=== PATIENT | female | born 1965 | race Caucasian/White ===

== ENCOUNTER 2019-07-15 06:10 | Day surgery (SDC) | payer OTHER ==
[2019-07-15] MEDS ORDERED: ONDANSETRON 4 MG/2 ML VIAL IVP STA (06:26)
[2019-07-15] MEDS ORDERED: MORPHINE 2 MG/ML CARPUJECT IVP STA (06:26)
--- NOTE | 2019-07-15 06:43 | ED Physician Documentation ---
PD HPI ABD PAIN - Stated complaint Stated Complaint: ABD PX - Chief complaint Chief Complaint: Abd Pain - History obtained from History obtained from: Patient - History of Present Illness Timing - onset: How many hours ago (5) Timing - duration: Hours (5) Timing - details: Abrupt onset Severity Comments: severe Quality: Sharp Location: RUQ Radiation: Other (across mid abdomen) Improved by: Other (nothing) Worsened by: Palpation Associated symptoms: Nausea. No: Fever, Vomiting, Hematemesis, Diarrhea, Constipation, Melena, Hematochezia, Dysuria, Hematuria, Chest pain, Dizzy Similar symptoms before: Diagnosis (has hx of similar symptoms and was diagnosed with gallstones in 2012 but saw a surgeon who told her he felt she could wait for surgery) Recently seen: Not recently seen - Treatment prior to arrival Treatment prior to arrival: none Review of Systems Ten Systems: 10 systems reviewed and negative Constitutional: denies: Fever Throat: reports: Reviewed and negative Cardiac: denies: Chest pain / pressure Respiratory: denies: Dyspnea, Cough GI: reports: Abdominal Pain, Nausea. denies: Abdominal Swelling, Vomiting, Constipation, Diarrhea, Hematemesis, Bloody / black stool : reports: Reviewed and negative Skin: reports: Reviewed and negative Musculoskeletal: denies: Back pain Neurologic: reports: Reviewed and negative Immunocompromised: reports: Reviewed and negative PD PAST MEDICAL HISTORY - Past Medical History Past Medical History: Yes GI: Other (gallstones ) - Allergies Allergies/Adverse Reactions: Allergies Allergy/AdvReac Type Severity Reaction Status Date / Time azithromycin Allergy Hives Verified 07/15/19 06:19 PD ED PE NORMAL - Vitals Vital signs reviewed: Yes - General General: Alert and oriented X 3, No acute distress, Well developed/nourished - HEENT HEENT: Atraumatic, Moist mucous membranes, Pharynx benign - Neck Neck: Supple, no meningeal sign, No JVD - Cardiac Cardiac: RRR - Respiratory Respiratory: No respiratory distress - Abdomen Abdomen: Soft, Non distended - Female Female : Deferred - Rectal Rectal: Deferred - Derm Derm: Normal color, Warm and dry, No rash - Extremities Extremities: No deformity - Neuro Neuro: Alert and oriented X 3 Eye Opening: Spontaneous Motor: Obeys Commands Verbal: Oriented GCS Score: 15 - Psych Psych: Normal mood, Normal affect PD ED PE EXPANDED - Abdomen Abdomen: Tender to palpation, RUQ, Other (positive orellana's sign ). No: Distended, Rebound, Guarding Results - Vitals Vitals: Vital Signs - 24 hr 07/15/19 06:13 Temperature 36.5 C Heart Rate 95 Respiratory 16 Rate Blood Pressure 192/119 H O2 Saturation 98 Oxygen O2 Source Room air Procedures - Bedside sono Bedside sono by EMP: RUQ US shows large gallstone in the gallbladder, limited study due to body habitus, will obtain radiology US PD MEDICAL DECISION MAKING - ED course Complexity details: considered differential, d/w patient ED course: ddx- cholelithiasis, cholecystitis, cholangitis, choledocholithiasis, pancreatitis 54 y/o F with hx and exam as documented. Has hx of gallstones and today sudden onset nausea, severe RUQ pain similar to prior episode of gallstone attack. Never had surgery. Has RUQ tenderness with murphys sign and a gallstone on bedside US. Labs pending and will obtain radiology US to further evaluate the gallbladder. Pt given analgesics and antiemetics in the ED. Signed out pt's care to Dr. Carrasco with labs and US pending.
[2019-07-15 06:45] LABS: BASOPHILS # (AUTO) 0.1 10^3/uL (0.0-0.1); BASOPHILS % (AUTO) 0.5 %; EOSINOPHILS # (AUTO) 0.3 10^3/uL (0.0-0.7); EOSINOPHILS % (AUTO) 2.8 %; HGB - HEMOGLOBIN 12.8 g/dL (12.0-16.0); LYMPHOCYTES # (AUTO) 2.5 10^3/uL (1.5-3.5); LYMPHOCYTES % (AUTO) 24.2 %; MEAN CORPUSCULAR HEMOGLOBIN 29.5 pg (27.0-31.0); MEAN CORPUSCULAR HGB CONC 31.5 g/dL (32.0-36.0); MEAN CORPUSCULAR VOLUME 93.5 fL (81.0-99.0); MEAN PLATELET VOLUME 10.1 fL (7.9-10.8); MONOCYTES # (AUTO) 0.5 10^3/uL (0.0-1.0); MONOCYTES % (AUTO) 5.1 %; NEUTROPHILS % (AUTO) 66.9 %; PLT - PLATELET COUNT 269 10^3/uL (130-450); RED BLOOD COUNT 4.34 10^6/uL (4.20-5.40); RED CELL DISTRIBUTION WIDTH 12.4 % (12.0-15.0); WHITE BLOOD COUNT 10.4 x10^3/uL (4.8-10.8)
[2019-07-15 07:02] LABS: BILIRUBIN,URINE NEGATIVE (NEGATIVE); GLUCOSE, URINE (UA) NEGATIVE (NEGATIVE); KETONES,URINE (UA) NEGATIVE (NEGATIVE); LEUKOCYTE ESTERASE, URINE NEGATIVE (NEGATIVE); NITRITE,URINE NEGATIVE (NEGATIVE); OCCULT BLOOD,URINE NEGATIVE (NEGATIVE); PH,URINE 7.5 PH (5.0-7.5); PROTEIN,URINE NEGATIVE (NEGATIVE); UROBILINOGEN,URINE 0.2 (NORMAL) E.U./dL (NORMAL)
[2019-07-15 07:04] LABS: CLARITY,URINE CLEAR (CLEAR)
[2019-07-15 07:13] LABS: ALBUMIN 3.9 g/dL (3.2-5.5); BILIRUBIN,TOTAL 0.7 mg/dL (0.2-1.0); CALCIUM 9.1 mg/dL (8.5-10.3); CREATININE 0.8 mg/dL (0.4-1.0)
[2019-07-15] MEDS ORDERED: PROCHLORPERAZINE 10 MG/2 ML VIAL IVP STA (07:30)
--- NOTE | 2019-07-15 08:33 | Ultrasound Report ---
Reason: RUQ Pain, gallstones, eval for cholecystitis Procedure Date: 07/15/2019 Accession Number: [id number] / [id number] Procedure: US - Abdomen Limited CPT Code: Final Report FULL RESULT: EXAM: ABDOMEN LIMITED EXAM DATE: 07/15/2019 08:07 AM INDICATION: Right upper quadrant pain, gallstones, eval for cholecystitis. COMPARISONS: None available. TECHNIQUE: Real-time scanning was performed with static images obtained. FINDINGS: Liver: Liver parenchyma is heterogeneous and moderately hyperechoic. No discrete liver masses or intrahepatic bile duct dilation. However, evaluation for masses is limited secondary to the echogenicity. Right liver measures 25.8 cm. Main portal vein flow: Hepatopetal. Gallbladder: Multiple gallstones are noted. Mild gallbladder wall thickening. Per report, the patient had a positive sonographic Mckeon sign. No pericholecystic fluid. Biliary System: CBD measures 6.9 mm. No intrahepatic or extrahepatic ductal dilatation. Pancreas: Normal. Right kidney: 11.9 cm. Exophytic anechoic right upper 2.5 x 2.2 x 1.8 cm cyst. No wall irregularities, mural nodules or thickened septations. No hydronephrosis. Abdominal aorta and IVC: Normal. Other: Study limited by bowel gas. IMPRESSION: 1. Gallstones, mild gallbladder wall thickening and positive sonographic Mckeon's sign. Constellation of findings is concerning for acute cholecystitis in the appropriate clinical circumstances. 2. Enlarged, moderately echogenic fatty liver. No mass. 3. Normal common bile duct and pancreas. 4. Exophytic 2.5 cm right upper renal simple cyst. RADIA
[2019-07-15] MEDS ORDERED: HYDROmorphone 1 MG/ML CARPUJECT IVP STA (09:00)
[2019-07-15] MEDS ORDERED: SODIUM CHLORIDE 0.9% 1,000 ML IV ONE ×2 (09:01→09:40)
[2019-07-15] MEDS ORDERED: PIPERACILLIN/TAZOBACTAM 3.375 GM in SODIUM CHLORIDE 0.9% MINIBAG 100 ML IV STA (09:39)
--- NOTE | 2019-07-15 09:42 | ED Physician Documentation ---
ED Addendum - Addendum Addendum: 07/15/19 09:40 Ultrasound shows gallstones with wall thickening at 6 to 7 mm. There is no surrounding fluid. Bile duct appeared normal. Her white count is normal and LFTs are normal. Reexamination shows still considerable tenderness in the right upper quadrant. This is concerning for acute cholecystitis. It appears to be inflammatory not yet to infectious per se but we will treated with some antibiotics as well. I talked with Dr. Kwon who is on for surgery and he will come evaluate the patient. The patient is amenable to surgical treatment if needed.
[2019-07-15] MEDS ORDERED: ROCURONIUM 50 MG/5 ML VIAL IVP ONE (09:56)
[2019-07-15] MEDS ORDERED: PROPOFOL 200 MG/20 ML VIAL IVP ONE (09:56)
[2019-07-15] MEDS ORDERED: MIDAZOLAM 2 MG/2 ML VIAL IVP ONE (09:56)
[2019-07-15] MEDS ORDERED: fentaNYL 100 MCG/2 ML VIAL IVP ONE (09:56)
[2019-07-15] MEDS ORDERED: NEOSTIGMINE 1 MG/1 ML 10 ML MDV IVP ONE (09:56)
--- NOTE | 2019-07-15 11:43 | HISTORY & PHYSICAL EXAMINATION ---
HPI - Admitted From Admitted from: ED (07/15/19 09:40 Ultrasound shows gallstones with wall thickening at 6 to 7 mm. There is no surrounding fluid. Bile duct appeared normal. Her white count is normal and LFTs are normal. Reexamination shows still considerable tenderness in the right upper quadrant. This is concerning for acute cholecystitis. It appears to be inflammatory not yet to infectious per se but we will treated with some antibiotics as well. I talked with Dr. Kwon who is on for surgery and he will come evaluate the patient. The patient is amenable to surgical treatment if needed.) - History Obtained From Records Reviewed: RN notes reviewed History obtained from: Patient Exam limitations: No limitations - History of Present Illness Pain/Problem Location Description: RUQ Severity at the worst: reports: Moderate Pain Quality: reports: Cramping Timing: reports: Gradual onset Duration: reports: Hours: (See ED report) Associated symptoms: reports: Nausea, General Weakness PMH/PSH - Past Medical History Cardiovascular: positive: None Respiratory: positive: Asthma GI: positive: Other Social & Family Hx - Social History Does the pt smoke?: No Smoking Status: Never smoker Meds/Allgy - Allergies Allergies/Adverse Reactions: Allergies Allergy/AdvReac Type Severity Reaction Status Date / Time azithromycin Allergy Hives Verified 07/15/19 06:19 Review of Systems - Constitutional Constitutional: reports: Fatigue - Gastrointestinal Gastrointestinal: reports: Abdominal pain, Nausea Exam - Vital Signs Reviewed Vital Signs: Yes Vital Signs: Vital Signs x48h Temp Pulse Resp BP Pulse Ox 07/15/19 10:05 76 18 157/73 H 99 07/15/19 08:00 62 16 143/63 H 98 07/15/19 07:30 64 20 155/91 H 97 07/15/19 06:13 36.5 C 95 16 192/119 H 98 - Physical Exam General Appearance: positive: Moderate distress Eyes Bilateral: positive: Normal inspection Neck: positive: Nml inspection Respiratory: positive: Chest non-tender, No respiratory distress, Breath sounds nml Cardiovascular: positive: Regular rate & rhythm Abdomen: positive: Tenderness (RUQ) Results - Lab Results Lab results reviewed: Yes Fish Bones: 07/15/19 06:35 07/15/19 06:35 Other Lab Results: Lab Results x24hrs 07/15/19 07/15/19 07/15/19 Range/Units 06:35 06:35 06:35 WBC 10.4 (4.8-10.8) x10^3/uL RBC 4.34 (4.20-5.40) 10^6/uL Hgb 12.8 (12.0-16.0) g/dL Hct 40.6 (37.0-47.0) % MCV 93.5 (81.0-99.0) fL MCH 29.5 (27.0-31.0) pg MCHC 31.5 L (32.0-36.0) g/dL RDW 12.4 (12.0-15.0) % Plt Count 269 (130-450) 10^3/uL MPV 10.1 (7.9-10.8) fL Neut # (Auto) 7.0 H (1.5-6.6) 10^3/uL Lymph # (Auto) 2.5 (1.5-3.5) 10^3/uL Coffee # (Auto) 0.5 (0.0-1.0) 10^3/uL Eos # (Auto) 0.3 (0.0-0.7) 10^3/uL Baso # (Auto) 0.1 (0.0-0.1) 10^3/uL Absolute Nucleated RBC 0.00 x10^3/uL Nucleated RBC % 0.0 /100WBC Sodium 136 (135-145) mmol/L Potassium 4.2 (3.5-5.0) mmol/L Chloride 103 (101-111) mmol/L Carbon Dioxide 25 (21-32) mmol/L Anion Gap 8.0 (6-13) BUN 15 (6-20) mg/dL Creatinine 0.8 (0.4-1.0) mg/dL Estimated GFR (MDRD) 75 L (>89) Glucose 158 H (70-100) mg/dL Calcium 9.1 (8.5-10.3) mg/dL Total Bilirubin 0.7 (0.2-1.0) mg/dL AST 22 (10-42) IU/L ALT 22 (10-60) IU/L Alkaline Phosphatase 63 (42-121) IU/L Total Protein 8.0 (6.7-8.2) g/dL Albumin 3.9 (3.2-5.5) g/dL Globulin 4.1 (2.1-4.2) g/dL Albumin/Globulin Ratio 1.0 (1.0-2.2) Lipase 32 (22-51) U/L Urine Color LIGHT YELLOW Urine Clarity CLEAR (CLEAR) Urine pH 7.5 (5.0-7.5) PH Ur Specific [place] 1.020 (1.002-1.030) Urine Protein NEGATIVE (NEGATIVE) mg/dL Urine Glucose (UA) NEGATIVE (NEGATIVE) mg/dL Urine Ketones NEGATIVE (NEGATIVE) mg/dL Urine Occult Blood NEGATIVE (NEGATIVE) Urine Nitrite NEGATIVE (NEGATIVE) Urine Bilirubin NEGATIVE (NEGATIVE) Urine Urobilinogen 0.2 (NORMAL) (NORMAL) E.U./dL Ur Leukocyte Esterase NEGATIVE (NEGATIVE) Ur Microscopic Review NOT INDICATED Urine Culture Comments NOT INDICATED - Diagnostic Imaging Results Diagnostic Imaging Results: positive: Final report reviewed Impression/Plan - Problem List Problem List: Acute cholecystitis/lithiasis Cholecystectomy w/possible cholangiography
[2019-07-15] MEDS ORDERED: HYDROmorphone 2 MG/ML VIAL IVP STA (12:01)
[2019-07-15] MEDS ORDERED: LACTATED RINGERS 1,000 ML IV ONE ×2 (13:27→21:47)
--- NOTE | 2019-07-15 14:04 | ANESTHESIA ---
Pre-Anesthesia VS, & Labs - Diagnosis Acute cholecystitis - Procedure Laparoscopic cholecystectomy, possible open Vital Signs: Temp Pulse Resp BP Pulse Ox 39.8 C H 75 18 152/68 H 97 07/15/19 13:30 07/15/19 13:30 07/15/19 13:30 07/15/19 13:30 07/15/19 13:30 Height 5 ft 6 in Weight (kg) 33 kg Body Mass Index 47.4 - NPO >8 hours Last Fluid Intake: sips in ER - Is Patient ?: No - Lab Results Current Lab Results: Laboratory Tests 07/15/19 06:35: Sodium 136, Potassium 4.2, Chloride 103, Carbon Dioxide 25, Anion Gap 8.0, BUN 15, Creatinine 0.8, Estimated GFR (MDRD) 75 L, Glucose 158 H, Calcium 9.1, Total Bilirubin 0.7, AST 22, ALT 22, Alkaline Phosphatase 63, Total Protein 8.0, Albumin 3.9, Globulin 4.1, Albumin/Globulin Ratio 1.0, Lipase 32 07/15/19 06:35: WBC 10.4, RBC 4.34, Hgb 12.8, Hct 40.6, MCV 93.5, MCH 29.5, MCHC 31.5 L, RDW 12.4, Plt Count 269, MPV 10.1, Neut # (Auto) 7.0 H, Lymph # (Auto) 2.5, [place] # (Auto) 0.5, Eos # (Auto) 0.3, Baso # (Auto) 0.1, Absolute Nucleated RBC 0.00, Nucleated RBC % 0.0 Lab results reviewed: Yes Fish Bones: 07/15/19 06:35 07/15/19 06:35 Home Medications and Allergies Home Medications: Ambulatory Orders Albuterol Sulf [Ventolin Hfa Inhaler] 1 puffs IH DAILY 07/15/19 Albuterol Sulf [Ventolin Hfa Inhaler] 1 puffs IH DAILY 07/15/19 Allergies/Adverse Reactions: Allergies Allergy/AdvReac Type Severity Reaction Status Date / Time azithromycin Allergy Hives Verified 07/15/19 06:19 Beef Containing Products AdvReac Edema Verified 07/15/19 13:49 Anes History & Medical History - Anesthetic History Anesthesia Complications: reports: No previous complications Family history of Anesthesia Complications: Denies Family history of Malignant Hyperthermia: Denies - Medical History Cardiovascular: reports: None Pulmonary: reports: Asthma, Pneumonia Gastrointestinal: reports: None Urinary: reports: None Musculoskeletal: reports: Chronic back pain Endocrine/Autoimmune: reports: None Skin: reports: Psoriasis Smoking Status: Never smoker - Surgical History Orthopedic: Other (elbow fx as child) Exam General: Alert, Oriented x3, Cooperative Dental: WNL Mouth Openin Fingerbreadth Neck Mobility: Normal Mallampati classification: III Thyromental Distance: 4-6 cm Respiratory: Lungs clear, Normal breath sounds, Decreased breath sounds (at bases) Cardiovascular: Regular rate Neurological: Normal speech Mental/Cognitive Status: Alert/Oriented X3, Normal for patient Plan Anesthesia Type: General Consent for Procedure(s) Verified and Reviewed: Yes Code Status: Attempt Resuscitation ASA classification: 2-Mild systemic disease Is this case an emergency?: No
[2019-07-15] MEDS ORDERED: ONDANSETRON 4 MG/2 ML VIAL ONE (16:24)
[2019-07-15] MEDS ORDERED: ENOXAPARIN 30 MG/0.3 ML SYRINGE SUBQ ONE (16:24)
[2019-07-15] MEDS ORDERED: ONDANSETRON 4 MG/2 ML VIAL IVP PRN (16:46)
[2019-07-15] MEDS ORDERED: ACETAMINOPHEN 325 MG TABLET PO PRN (16:46)
[2019-07-15] MEDS ORDERED: IBUPROFEN 600 MG TABLET PO PRN (16:46)
[2019-07-15] MEDS ORDERED: oxyCODONE 5 MG TABLET PO PRN (16:46)
[2019-07-15] MEDS ORDERED: KETOROLAC 30 MG/ML VIAL IVP ONE (18:59)
[2019-07-15] MEDS: HYDROmorphone 0.5 MG/0.5 ML SYRINGE IVP PRN (19:08)
[2019-07-15] MEDS ORDERED: LIDOCAINE MPF 1%-EPI 1:200000 30 ML VIAL ONE (21:14)
[2019-07-15] MEDS ORDERED: IOTHALAMATE MEGLUMINE 50 ML VIAL ONE (21:14)
[2019-07-15] MEDS ORDERED: LIDOCAINE MPF 1%-EPI 1:200000 30 ML VIAL SUBQ ONE ×2 (21:48)
[2019-07-15] MEDS ORDERED: IOTHALAMATE MEGLUMINE 50 ML VIAL IVP ONE (21:48)
--- NOTE | 2019-07-16 | IMMEDIATE POSTOPERATIVE NOTE ---
Immediate Postoperative Note - Procedure Note Procedure Date: 07/15/19 Pre-Op Diagnosis: Acute cholecystitis/lithiasis Procedure: Lap karly Post-Op Diagnosis: Same Primary Surgeon: Doyle Cutter Operator: Micaela Anesthesia Type: General ET tube, Local Findings: Severely inflamed large and distended gallbladder w/multiple large gallstones. Many pericholecystic adhesions. Complications: No complications Estimated Blood Loss (in cc): 25 Specimens and Cultures: Gallbladder Plan of Care: Cont outpatient same day surgery status. Gen Surg lap Kal[place] post op order set
[2019-07-16] MEDS ORDERED: ONDANSETRON 4 MG/2 ML VIAL IVP PRN (00:03)
[2019-07-16] MEDS ORDERED: oxyCODONE 5 MG TABLET PO PRN (00:03)
[2019-07-16] MEDS ORDERED: IBUPROFEN 600 MG TABLET PO PRN (00:03)
[2019-07-16] MEDS ORDERED: ACETAMINOPHEN 325 MG TABLET PO PRN (00:03)
[2019-07-16] MEDS ORDERED: SODIUM CHLORIDE FLUSH 0.9% 10 ML SYRINGE ONE ×3 (01:27→10:06)
--- NOTE | 2019-07-16 06:09 | OPERATIVE REPORT ---
DATE OF SERVICE: 07/16/2019 Physician: Micah Kwon DO PREOPERATIVE DIAGNOSIS: Acute cholecystitis/cholelithiasis. POSTOPERATIVE DIAGNOSIS: Acute cholecystitis/cholelithiasis. PROCEDURE: Laparoscopic cholecystectomy. SURGEON: Micah Kwon DO PITCHING COACH: TANVIR Luna BOAT CAMP OPERATOR: Micaela ESTIMATED BLOOD LOSS: 25 mL FINDINGS: Patient's gallbladder was severely inflamed with multiple pericholecystic inflammatory adh esions, and a markedly thickened gallbladder wall and multiple large gallstones. The gallbladder was tense and markedly enlarged. COMPLICATIONS: None. CONDITION: Improved upon transport to Recovery. HISTORY: The patient is a 54-year-old, white female with a BMI of 47, who presented with a greater t granados 24-hour history of increasing abdominal pain, in particular in the right upper quadrant, with [place] sea. She presented through the emergency department and ultrasound study was confirmatory for cholec ystitis/cholelithiasis. Patient was advised of the situation and, after informed consent was obtained, she was taken to the o perating room and, under the above-mentioned anesthetic, prepped and draped in the usual sterile esquivel er. A vertically oriented intraumbilical incision was utilized to gain entrance into the abdominal c avity by way of the Visiport device. Once in the abdominal cavity, the pneumoperitoneum was created and the 3 working ports were placed under direct vision. Subsequently, the fundus of the gallbladder was identified and placed on cephalad traction. The infundibulum was identified and placed on gentl e anterolateral traction. Multiple pericholecystic inflammatory adhesions were carefully stripped aw ay or electrocoagulated. Eventually, the Fortunato pouch was identified and it was placed on anterola teral traction, and careful dissection was accomplished, mobilizing the cystic duct down to the junct ion of the common bile duct without harming or touching the common bile duct in any way. The cystic artery was likewise identified. Both of these structures were carefully skeletonized and a staple wa s placed across the cystic duct at the neck of the gallbladder and 2 additional patricia distal to rakel t, and the cystic duct was then divided between the top 2 patricia. The cystic artery was likewise tr iply stapled and divided between the top 2 patricia. The gallbladder was then excised out of the live r bed using electrocautery and eventually removed through the umbilical port in an Endo Catch bag. T he gallbladder was quite sizable, and I had to extend the fascial incision and skin incision in the u mbilicus to accommodate the large gallbladder and multiple stones. I did pluck out as many stones as possible with a ring forceps, but still the thickening of the gallbladder wall forced me to enlarge the umbilical incision somewhat. Eventually, hemostasis was achieved in the liver bed through the us e of electrocautery and Surgicel. Copious irrigation with sterile saline was accomplished and, after as much of the irrigant as possible was evacuated, the patient was prepared for closure. Following a reported correct sponge and needle count, the working ports were withdrawn under direct vision and there was no bleeding noted. The pneumoperitoneum was then released, and the umbilical fascia suture d with several inverted interrupted 0 Vicryl sutures. All of the skin margins were then joined with running undyed subcuticular 4-0 Monocryl, Dermabond over that, and the patient was transported to [facility] in stable condition. TD: 07/16/2019 00:19
[2019-07-16 08:38] VITALS: BP 140/69
[2019-07-16] MEDS: HYDROmorphone 0.5 MG/0.5 ML SYRINGE IVP PRN (10:08)
== END 2019-07-16 13:46 | disposition home or self-care (01) ==
LOC: ED 06:10 → SDS 09:55 → OBS 16:41 → MS3 21:38 → SDS 07-16 13:46
PROVIDERS: ATTEND Surgery
PROC: 0FT44ZZ Resection of Gallbladder, Percutaneous Endoscopic Approach (ICD-10-PCS; principal; 2019-07-15 15:00)
DX: K80.12 Calculus of gallbladder with acute and chronic cholecystitis without obstruction (principal); J45.909 Unspecified asthma, uncomplicated
CPT/HCPCS: 36415; 47562; 76705; 80053; 81003; 83690; 85025; 96374; 96375; 99284; 99285; A9270; C1758; J1170; J1650; J7120; Q9961; 81001; 87086

== ENCOUNTER 2020-08-15 11:47 | Outpatient (CLI) | payer OTHER ==
--- NOTE | 2020-08-15 13:43 | XRAY Report ---
PROCEDURE: Chest 2 View X-Ray INDICATIONS: FOREIGN OBJECT IN OTHER PARTS OF REPIRATORY TRACT TECHNIQUE: 2 view(s) of the chest. COMPARISON: None. FINDINGS: Surgical changes and devices: None. Lungs and pleura: No pleural effusions or pneumothorax. Lungs are clear. Mediastinum: Mediastinal contours are normal. Heart size is normal. Bones and chest wall: No suspicious bony abnormalities. Soft tissues appear unremarkable. IMPRESSION: No acute process. Reviewed by: Barrett Mays MD on 08/15/2020 1:42 PM [facility] Approved by: Barrett Mays MD on 08/15/2020 1:42 PM [facility] Station ID: [id number]
== END 2020-08-15 23:59 | disposition home or self-care (01) ==
LOC: DI.S 11:47
PROVIDERS: ATTEND Emergency Medicine
DX: T17.898A Other foreign object in other parts of respiratory tract causing other injury, initial encounter (principal)

== ENCOUNTER 2022-02-15 08:00 | Outpatient (CLI) | payer OTHER ==
--- NOTE | 2022-02-15 21:09 | XRAY Report ---
PROCEDURE: Chest 2 View X-Ray INDICATIONS: COUGH TECHNIQUE: 2 view(s) of the chest. COMPARISON: None. FINDINGS: Surgical changes and devices: None. Lungs and pleura: No pleural effusions or pneumothorax. Lungs demonstrate diffuse interstitial thic kening and perihilar regions and mid to lower lung zones. No dense consolidations. Mediastinum: Mediastinal contours are normal. Heart size is normal. Bones and chest wall: No suspicious bony abnormalities. Soft tissues appear unremarkable. IMPRESSION: 1. Diffuse perihilar and mid and lower lung zone interstitial thickening. Interstitial or viral pneum onitis may have this appearance. Chronic pulmonary edema may also have this appearance. Correlate cli nically. Reviewed by: Peyton Palencia MD on 02/15/2022 9:08 PM PDT Approved by: Peyton Palencia MD on 02/15/2022 9:08 PM PDT Station ID: [id number]
== END 2022-02-15 23:59 | disposition home or self-care (01) ==
LOC: DI.S 08:00
PROVIDERS: ATTEND Emergency Medicine
DX: R91.8 Other nonspecific abnormal finding of lung field (principal); R05.9 Cough, unspecified